=== PATIENT | female | born 1945 | race Two or more races ===

== ENCOUNTER 2017-07-09 12:19 | Outpatient (CLI) | payer OTHER ==
[~2017-07-09 12:19] MED LIST: CALCIO DEL MAR500 MG PO; COD LIVER OIL1 EACH PO; LIPITOR40 MG PO; NORVASC10 MG PO; OMEGA 3 FISH OI1 CAP PO; SYNTHROID175 MCG PO; TENORMIN50 M1 PO
== END 2017-07-09 16:55 | disposition home or self-care (01) ==
LOC: MRI 12:19
DX: M51.17 Intervertebral disc disorders with radiculopathy, lumbosacral region (principal)
CPT/HCPCS: 72148

== ENCOUNTER 2017-07-15 14:52 | Emergency (ER) | payer OTHER ==
[~2017-07-15] VITALS: Ht 152.4 cm; Wt 69.9 kg
== END 2017-07-15 16:30 | disposition home or self-care (01) ==
LOC: ER 14:52
DX: S91.332A Puncture wound without foreign body, left foot, initial encounter (principal); W45.0XXA Nail entering through skin, initial encounter; Y93.01 Activity, walking, marching and hiking; Y92.018 Other place in single-family (private) house as the place of occurrence of the external cause; Y99.8 Other external cause status

== ENCOUNTER 2017-07-18 08:18 | Outpatient (CLI) | payer OTHER | END 2017-07-18 14:06 | disposition home or self-care (01) | LOC: MAMO-SONO 08:18 | DX: Z12.31 Encounter for screening mammogram for malignant neoplasm of breast (principal); Z87.898 Personal history of other specified conditions ==

== ENCOUNTER → 2019-02-02 | Outpatient (CLI) | payer OTHER | END | disposition home or self-care (01) | LOC: RAD 11:11 | DX: M12.851 Other specific arthropathies, not elsewhere classified, right hip (principal) ==

== ENCOUNTER 2019-08-21 11:19 | Outpatient (CLI) | payer OTHER | END 2019-08-21 12:00 | disposition home or self-care (01) | LOC: RAD 11:19 | DX: M16.0 Bilateral primary osteoarthritis of hip (principal); M17.0 Bilateral primary osteoarthritis of knee ==

== ENCOUNTER 2020-10-06 09:27 | Outpatient (CLI) | payer OTHER | END 2020-10-06 09:36 | disposition home or self-care (01) | LOC: SONOGRAMA 09:27 | DX: M79.621 Pain in right upper arm (principal); M62.421 Contracture of muscle, right upper arm ==

== ENCOUNTER 2021-02-02 14:15 | Outpatient (CLI) | payer OTHER | END 2021-02-02 14:19 | disposition home or self-care (01) | LOC: RAD 14:15 | PROVIDERS: ATTEND Internal Medicine Cardiovascular Disease | DX: M51.37 Other intervertebral disc degeneration, lumbosacral region (principal) ==

== ENCOUNTER → 2021-02-21 | Outpatient (CLI) | payer OTHER | END | disposition home or self-care (01) | LOC: RAD 14:03 | PROVIDERS: ATTEND Internal Medicine Cardiovascular Disease | DX: M25.552 Pain in left hip (principal); M25.551 Pain in right hip; M25.562 Pain in left knee; M25.561 Pain in right knee ==

== ENCOUNTER 2023-01-10 13:41 | Outpatient (CLI) | payer OTHER ==
[~2023-01-10 13:41] MED LIST changes: +ZANAFLEX2 MG PO
== END 2023-01-10 13:54 | disposition home or self-care (01) ==
LOC: RAD 13:41
PROVIDERS: ATTEND Internal Medicine Cardiovascular Disease
DX: M12.9 Arthropathy, unspecified (principal)

== ENCOUNTER 2023-01-31 08:59 | Outpatient (CLI) | payer OTHER | END 2023-01-31 09:05 | disposition home or self-care (01) | LOC: TOM 08:59 | PROVIDERS: ATTEND Internal Medicine Hematology & Oncology | DX: D75.839 Thrombocytosis, unspecified (principal); E03.8 Other specified hypothyroidism; I10 Essential (primary) hypertension; E78.2 Mixed hyperlipidemia | CPT/HCPCS: 71260; 74177; Q9965 ==

== ENCOUNTER → 2023-02-20 15:55 | Outpatient (CLI) | payer OTHER | END | disposition home or self-care (01) | LOC: MAMO-SONO 15:55 | PROVIDERS: ATTEND Internal Medicine Cardiovascular Disease | DX: N63.11 Unspecified lump in the right breast, upper outer quadrant (principal); Z12.31 Encounter for screening mammogram for malignant neoplasm of breast ==

== ENCOUNTER 2023-03-01 07:51 | Outpatient (CLI) | payer OTHER ==
[2023-03-01 09:01] LABS: HEMATOCRIT 30.8 % (36.0-45.00); HEMOGLOBIN 10.4 g/dL (12.0-15.00); MEAN CORPUSCULAR HEMOGLOBIN 34.2 pg (27.00-32.0); MEAN CORPUSCULAR HGB CONC 33.8 g/dl (32.0-36.0); PLATELET COUNT 666 K/uL (150-450); RED BLOOD COUNT 3.05 M/uL (4.00-6.00); RED CELL DISTRIBUTION WIDTH 15.1 % (11.5-14.5)
[2023-03-01 09:54] LABS: ALBUMIN 3.5 gm/dL (3.4-5.0); BILIRUBIN TOTAL 0.35 mg/dL (0.3-1.2); CALCIUM 8.5 mg/dL (8.5-10.1); CREATININE SERUM 1.11 mg/dL (0.55-1.02); GFR 47.54; GLOBULINA 3.3 G/DL (2.4-3.5); POTASSIUM 4.69 mEq/L (3.5-5.1); TOTAL PROTEIN 6.8 gm/dL (6.4-8.2)
== END 2023-03-01 07:52 | disposition home or self-care (01) ==
LOC: LAB 07:51
PROVIDERS: ATTEND Internal Medicine Hematology & Oncology
DX: D50.8 Other iron deficiency anemias (principal); R79.9 Abnormal finding of blood chemistry, unspecified; I10 Essential (primary) hypertension; R74.02 Elevation of levels of lactic acid dehydrogenase [LDH]; K76.89 Other specified diseases of liver; D51.1 Vitamin B12 deficiency anemia due to selective vitamin B12 malabsorption with proteinuria; R19.5 Other fecal abnormalities; Z12.11 Encounter for screening for malignant neoplasm of colon; R97.0 Elevated carcinoembryonic antigen [CEA]; R97.8 Other abnormal tumor markers; E03.8 Other specified hypothyroidism; D75.839 Thrombocytosis, unspecified; E78.2 Mixed hyperlipidemia

== ENCOUNTER 2023-03-31 14:57 | Outpatient (CLI) | payer OTHER | END 2023-03-31 15:09 | disposition home or self-care (01) | LOC: SONOGRAMA 14:57 | PROVIDERS: ATTEND Obstetrics & Gynecology Maternal & Fetal Medicine | DX: R10.2 Pelvic and perineal pain (principal) ==

== ENCOUNTER → 2023-07-11 | Outpatient (CLI) | payer OTHER | END | disposition home or self-care (01) | LOC: TOM 09:49 | PROVIDERS: ATTEND Internal Medicine Cardiovascular Disease | DX: Z12.11 Encounter for screening for malignant neoplasm of colon (principal) ==

== ENCOUNTER 2024-03-25 07:53 | Outpatient (CLI) | payer OTHER ==
[2024-03-25 08:51] LABS: URINE APPEARANCE Clear; URINE BILIRRUBIN Negative (NEGATIVE); URINE BLOOD Negative; URINE COLOR Yellow; URINE GLUCOSE Negative (NEGATIVE); URINE KETONE Negative (NEGATIVE); URINE LEUKOCYTE Small; URINE NITRATE Negative; URINE PROTEIN Trace (NEGATIVE)
[2024-03-25 08:52] LABS: URINE BACTERIA 56.6 uL (0.0-1933); URINE EPITHELIAL CELLS 14.2 uL (0.0-38.8); URINE RBC 8.3 uL (0.0-20.8)
[2024-03-25 09:07] LABS: URINE CAST 0.15 uL (0.0-1.40)
[2024-03-25 09:08] LABS: HEMATOCRIT 29.1 % (36.0-45.00); MEAN CORPUSCULAR HEMOGLOBIN 34.3 pg (27.00-32.0); MEAN CORPUSCULAR HGB CONC 34.2 g/dl (32.0-36.0); PLATELET COUNT 406 K/uL (150-450); RED BLOOD COUNT 2.91 M/uL (4.00-6.00); RED CELL DISTRIBUTION WIDTH 16.9 % (11.5-14.5)
[2024-03-25 09:35] LABS: ALBUMIN 3.9 gm/dL (3.4-5.0); BILIRUBIN TOTAL 0.41 mg/dL (0.3-1.2); CALCIUM 8.8 mg/dL (8.5-10.1); GFR 53.48; GLOBULINA 3.3 G/DL (2.4-3.5); POTASSIUM 5.18 mEq/L (3.5-5.1); TOTAL PROTEIN 7.2 gm/dL (6.4-8.2)
[2024-03-25 09:39] LABS: INR 1.02; PARTIAL THROMBOPLASTIN TIME 27.7 SECONDS (22.0-34.0); PROTHROMBIN TIME 11.1 SECONDS (9.0-11.5)
== END 2024-03-25 08:04 | disposition home or self-care (01) ==
LOC: RAD 07:53
PROVIDERS: ATTEND Internal Medicine Cardiovascular Disease
DX: E11.9 Type 2 diabetes mellitus without complications (principal); I10 Essential (primary) hypertension; E03.9 Hypothyroidism, unspecified; E78.2 Mixed hyperlipidemia; D68.9 Coagulation defect, unspecified; Z01.812 Encounter for preprocedural laboratory examination; Z13.6 Encounter for screening for cardiovascular disorders; E78.00 Pure hypercholesterolemia, unspecified; J44.9 Chronic obstructive pulmonary disease, unspecified

== ENCOUNTER 2024-10-21 11:26 | Outpatient (CLI) | payer OTHER | END 2024-10-21 11:27 | disposition home or self-care (01) | LOC: EKG 11:26 | PROVIDERS: ATTEND Internal Medicine Cardiovascular Disease | DX: I10 Essential (primary) hypertension (principal) ==

== ENCOUNTER 2025-05-04 14:29 | Outpatient (CLI) | payer OTHER | END 2025-05-04 14:33 | disposition home or self-care (01) | LOC: RAD 14:29 | PROVIDERS: ATTEND Internal Medicine Cardiovascular Disease | DX: M12.9 Arthropathy, unspecified (principal) ==

== ENCOUNTER 2025-05-09 13:04 | Outpatient (CLI) | payer OTHER | END 2025-05-09 13:10 | disposition home or self-care (01) | LOC: TOM 13:04 | PROVIDERS: ATTEND Internal Medicine Cardiovascular Disease | DX: M19.90 Unspecified osteoarthritis, unspecified site (principal) ==